=== PATIENT | female | born 1965 | race Caucasian/White ===

== ENCOUNTER 2025-03-30 20:42 | Emergency (ER) | payer MEDICAID, SELFPAY ==
[2025-03-30 20:44] VITALS: BMI 18.3
[2025-03-30 21:12] VITALS: BP 148/76; PULSE 72; RESP 22; TEMP 36.9; O2SAT 92; O2SAT 96
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
--- NOTE | 2025-03-30 21:23 | EKG_ITS ---
[facility] Test Date: 2025-03-30 Pat Name: LAQUITA LANE Department: Room: - Gender: Female Dietary Director: : 1965 Requested By: Bob Noguera Order Number: [id number] Reading MD: Bob Noguera Measurements Intervals Hilliards Rate: 63 P: 75 LA: 148 QRS: 88 QRSD: 75 T: 79 QT: 401 QTc: 413 Interpretive Statements SINUS RHYTHM ST ELEVATION, PROBABLY EARLY REPOLARIZATION [ST ELEVATION WITH NORMALLY INFLECTED T-WAVE] No previous ECG available for comparison /[id number]/S0/[id number].pdf
--- NOTE | 2025-03-30 21:23 | XR_ITS ---
Examination: AP chest single view Technique AP portable upright chest single view Date and time: March 30, 2025 2142 hours Comparison June 30, 2024 INDICATIONS: Shortness of breath weakness beginning today FINDINGS: Normal heart size The lungs are clear Prominent osteopenia Moderate hyperexpansion IMPRESSION: COPD with moderate hyperexpansion No pneumonia or pulmonary edema
--- NOTE | 2025-03-30 21:23 | XR_ITS ---
Examination: CT brain head without contrast. 2-D sagittal coronal reconstructions Date and time of exam:March 31, 2025 0012 hours INDICATIONS: Altered mental status today CTDI: vol (mGy): 43.7. DLP: (mGycm):812. Technique: Multiple CT axial sections of the brain have been obtained, 5 mm slice thickness. Contrast has not been administered. 2-D sagittal, coronal reconstructions have been obtained Low dose protocols were performed. One or more of the following dose reduction techniques were used; automated exposure control, adjustment of the mA and/or KV according to patient size, use of iterative reconstruction technique. Findings: No significant ventricular enlargement. Intra-axial or extra-axial hemorrhage density is not seen. No mass effect or midline shift Basal cisterns are not remarkable. Fourth ventricle is midline. Cranial vault intact. Impression: Negative for acute hemorrhage, mass effect or midline shift
--- NOTE | 2025-03-30 21:24 | XR_ITS ---
Examination: CT cervical spine without contrast 2-D sagittal reconstructions 2-D coronal reconstructions 3-D reconstructions. Exam date and time:March 31, 2025, 0012 hours INDICATIONS: Altered mental status neck pain today CTDI:vol (mGy) 11 DLP: (mGycm) 174 Technique: Multiple 2 mm axial sections of the cervical spine have been obtained. The coronal and sagittal reconstructions have been obtained. 3-D reconstructions have been obtained. Low dose protocols were performed. One or more of the following dose reduction techniques were used; automated exposure control, adjustment of the mA and/or KV according to patient size, use of iterative reconstruction technique. Findings: Axial sections demonstrate intact base of the skull. C1 exhibit satisfactory relationship to the odontoid. No acute cervical vertebral body fracture seen. Alignment posterior spinous processes satisfactory. Slight erosive right facet arthropathy C4-C5 seen not uncommonly Grade 1 anterolisthesis C5 on C6 which may relate to the degenerative changes C6-C7 Impression: No acute cervical fracture.
--- NOTE | 2025-03-30 21:24 | XR_ITS ---
Examination: CTA chest with intravenous contrast 2-D reconstructions 3-D reconstructions, vascular Date and time of exam: March 31, 2025, 0015 hours INDICATIONS: Shortness of breath chest pain CTDI: vol (mGy) 5.41 DLP: (mGycm) 195 Technique: Multiple axial sections of the thorax have been obtained. 3 mm slice thickness, from below the hemidiaphragms to above the apices of the lungs. Mediastinal and lung density settings have been obtained. 2-D sagittal and coronal reconstructions. 3-D angiographic renderings, 3-D volume renderings, 3D post processing, vascular maximum intensity projections obtained. Contrast administered is 100 cc Isovue 370 intravenous. Low dose protocols were performed. One or more of the following dose reduction techniques were used; automated exposure control, adjustment of the mA and/or KV according to patient size, use of iterative reconstruction technique. Findings: No thoracic aortic aneurysm dilatation or dissection No pulmonary artery filling defects COPD with areas of airspace destruction Small areas of right lower lobe pneumonia No visualized reverse bony lesion Kidneys partially visualized no hydronephrosis Mild kyphosis dorsal spine. Impression : Negative for pulmonary artery emboli COPD Pneumonia right base
--- NOTE | 2025-03-30 21:24 | XR_ITS ---
Examination: CT abdomen with intravenous contrast CT pelvis with intravenous contrast 2-D coronal reconstructions 2-D sagittal reconstructions Date and time of exam:March 31, 2025, 0015 hours INDICATIONS: Altered mental status of abdominal pain today. CTDI: vol (mGy) 5.25 DLP: (mGycm) 224. Technique: Multiple axial sections of the abdomen and pelvis have been obtained. 64 slice high-resolution scanner used. 3 mm axial sections have been obtained, post intravenous injection 100 cc Isovue 370 2-D sagittal, coronal reconstructions obtained. Low dose protocols were performed. One or more of the following dose reduction techniques were used; automated exposure control, adjustment of the mA and/or KV according to patient size, use of iterative reconstruction technique. Findings: Right lobe liver cyst No biliary tract dilatation The gallbladder is contracted No extrapancreatic biliary tract dilatation No pancreatic mass No hydronephrosis No bowel obstruction. Minimal thickening of the colonic wall, colon fluid-filled Colonic diverticulosis, no diverticulitis No pericecal inflammatory change Urinary bladder intact Anteverted uterus, atrophic No pelvic mass Moderate osteopenia IMPRESSION: Limited study, patient motion, absence of retroperitoneal fat Suspicious for mild colitis pattern No obstruction
[2025-03-30] MEDS: ALBUTEROL/IPRATROPIUM (Duoneb) RT SOL 3 ML NEBU INH (21:38)
[2025-03-30 21:40] VITALS: PULSE 71; RESP 23; O2SAT 100
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
[2025-03-30 22:04] LABS: Base Excess 8 (-3-3); HCO3 34 mEq/L (20-26); Inspired Oxygen, FIO2 21 %; O2 Saturation 97 % (91-98); PCO2 55 mmHg (32.0-48.0); PO2 81 mmHg (83-108); pH, Arterial 7.40 (7.35-7.45)
[2025-03-30 22:07] LABS: Allen Test Performed/OK; Puncture Site Right Brachial
[2025-03-30 22:11] LABS: Lactate (Lactic Acid) 1.3 mMol/L (0.4-2.0)
[2025-03-30 22:21] LABS: Basophils # (Auto) 0.0 Thou/mm3 (0.0-0.2); Basophils % (Auto) 0 % (0-2.5); Eosinophils # (Auto) 0.1 Thou/mm3 (0.0-0.5); Eosinophils % (Auto) 0 % (0-10); Hematocrit 33.0 % (36.0-46.0); Hemoglobin 10.6 g/dL (12.0-16.0); Immature Granulocytes Auto 0.03 Thou/mm3 (0.00-0.00); Lymphocytes # (Auto) 1.7 Thou/mm3 (1.0-4.8); Lymphocytes % (Auto) 13 % (10-50); Mean Corpuscular HGB Conc 32.1 g/dl (31.0-37.0); Mean Corpuscular Hemoglobin 28.3 pg (25.0-35.0); Mean Corpuscular Volume 88 fL (80-100); Monocytes # (Auto) 1.1 Thou/mm3 (0.0-0.8); Monocytes % (Auto) 8 % (0-12); Neutrophils # (Auto) 10.8 Thou/mm3 (1.8-7.7); Neutrophils % (Auto) 79 % (37-80); Nucleated Red Blood Cell # 0.00 Thou/mm3 (0.00-0.00); Nucleated Red Blood Cell % 0 /100 WBC (0); Platelet Count 337 Thou/mm3 (140-440); RDW Standard Deviation 42.3 fL (36.4-46.3); Red Blood Count 3.74 Miln/mm3 (4.00-5.20); White Blood Count 13.7 Thou/mm3 (3.6-11.0)
[2025-03-30] MEDS: MethylPREDNISolone SOD SUCC 62.5 MG/ML 2ML VIAL 125 MG IVP (22:26)
[2025-03-30] MEDS: cefTRIAXone/D5w 1gm IV premix 1 GM/50 ML BAG IV (22:27)
[2025-03-30 22:29] LABS: INR 1.1 (0.9-1.3); Partial Thromboplastin Time 32.6 Seconds (22.0-36.0); Prothrombin Time 11.9 Seconds (9.0-12.2)
[2025-03-30 22:30] LABS: Sed Rate (ESR) 9 mm/hr (0-30)
[2025-03-30 22:35] LABS: Collection Type, Urine Clean Catch
[2025-03-30 22:40] LABS: Bilirubin,Urine Negative (Negative); Blood,Urine Negative (Negative); Clarity,Urine Clear (Clear/Hazy); Color,Urine Lt-Yellow (Lt Yel-Yel); Culture Indicated,Urine Not Indicated; Glucose, Urine Negative (Negative); Hyaline Casts,Urine < 1 /hpf (0-1); Ketones,Urine Negative (Negative); Leukocyte Esterase,Urine Positive (Negative); Nitrite,Urine Negative (Negative); PH,Urine 7.0 (5.0-7.0); Protein,Urine Negative (Neg - Trace); RBC,Urine 3 /hpf (0-3); Specific Gravity,Urine 1.014 (1.001-1.035); Squamous Epithelial Cell,Urine 2 /hpf (0-5); Urobilinogen,Urine 2.0 mg/dL (0.0-1.0); WBC,Urine 2 /hpf (0-5)
[2025-03-30 22:49] LABS: D-Dimer < 250 ng/mL (<600)
[2025-03-30] MEDS: AZITHROMYCIN INJ 500 MG in SODIUM CHLORIDE 0.9% 250 ML 250 ML 250 MG IV (23:05)
[2025-03-30 23:13] LABS: Amphetamine/Methamp Scrn,U Negative (Negative); Barbiturate Screen,Urine Negative (Negative); Benzodiazepines Screen,Urine Negative (Negative); Benzoylecgonine Screen, Ur Negative (Negative); Fentanyl Screen,Urine Negative (Negative); Opiate Screen,Urine Positive (Negative); THC Screen,Urine Negative (Negative)
[2025-03-30] MEDS: DIAZEPAM INJ 5 MG/ML VIAL 2 ML 2.5 MG IVP (23:23)
[2025-03-30 23:27] LABS: Alanine Aminotransferase 10 U/L (10-49); Albumin, Serum 4.0 gm/dL (3.4-4.8); Albumin/Globulin Ratio 1.8 (1.2-2.2); Alcohol, Blood Medical < 3.0 mg/dL (0-10.0); Alkaline Phosphatase 109 U/L (46-116); Anion Gap 7 (7-16); Aspartate Amino Transferase 13 U/L (0-34); BUN/Creatinine Ratio 23 Ratio (12-20); Bilirubin,Direct < 0.1 mg/dL (0.0-0.3); Bilirubin,Total 0.3 mg/dL (0.3-1.2); Blood Urea Nitrogen 9 mg/dL (9-23); Calcium 9.3 mg/dL (8.3-10.6); Calcium (Corrected) 9.3 mg/dL (8.5-10.1); Carbon Dioxide 33.0 mMol/L (20.0-31.0); Chloride 92 mMol/L (98-107); Creatinine (Component) 0.4 mg/dL (0.6-1.3); Estimated Creatinine Clearance 89.9 mL/min (>60); Free T4 (Free Thyroxine) 1.12 ng/dL (0.89-1.76); Globulin 2.2 gm/dL (2.3-3.5); Glucose 128 mg/dL (74-106); Magnesium 1.7 mg/dL (1.6-2.6); Osmolality,Calculated 265 (275-295); Potassium 3.4 mMol/L (3.4-5.1); Procalcitonin 0.06 ng/ml (0.0-0.49); Sodium 132 mMol/L (136-145); Thyroid Stimulating Hormone 0.89 uIU/mL (0.55-4.78); Total Protein 6.2 gm/dL (5.7-8.2); Troponin I < 0.020 ng/mL (0.0-0.045); eGFR > 60 See Note
[2025-03-30 23:38] LABS: B-Type Natriuretic Peptide 41 pg/mL (0-100)
[2025-03-30 23:45] LABS: C-Reactive Protein < 0.5 mg/dL (0.0-0.9)
[2025-03-31 00:57] VITALS: BP 113/75; PULSE 75; RESP 14; TEMP 37; O2SAT 99
--- NOTE | 2025-03-31 01:05 | PRELIM_ITS ---
CT scan of the head without intravenous contrast (axial sections with sagittal and coronal reformats) March 31, 2025 0012 hours Clinical history: AMS No prior study is available for comparison. Findings: There is no evidence of intracranial hemorrhage, mass effect or midline shift. There are mild periventricular and subcortical white matter hypodensities, likely representing chronic small vessel ischemia. There is mild volume loss. There is atheromatous calcification of the intracranial arteries. The calvarium is unremarkable. There is mild to moderate mucosal thickening in bilateral maxillary sinuses. The mastoid air cells and the other visualized paranasal sinuses are clear. Impression: No evidence of intracranial hemorrhage, mass effect or midline shift. Periventricular chronic small vessel ischemia and volume loss. Report Electronically Signed By: Alfonso Lopez 03/31/2025 1:04:41 AM [EST]
--- NOTE | 2025-03-31 01:36 | PRELIM_ITS ---
CT scan of the cervical spine without intravenous contrast (axial sections with sagittal and coronal reformats) March 31, 2025 0012 hours Clinical History: Trauma No prior study is available for comparison. Findings: The bones are osteopenic. There is no fracture or traumatic subluxation. There is mild anterolisthesis of C5 on C 6. Mild to moderate degenerative changes are noted in the form of multilevel marginal osteophytes, decreased disc spaces and endplate sclerosis. C3-C4 through C6-C7 disc osteophyte complexes are noted with associated uncinate hypertrophy and facet arthropathy causing mild spinal canal and bilateral neural foraminal narrowing. There is right C4-C5 erosive facet athropathy. The prevertebral soft tissues are unremarkable. There are emphysematous changes in the lungs bilaterally. Impression: No evidence of fracture or traumatic subluxation. Mild to moderate degenerative changes. Right C4-C5 erosive facet athropathy, likely degenerative or infective. Recommend clinical correlation and followup. Report Electronically Signed By: Alfonso Lopez 03/31/2025 1:35:49 AM [EST]
--- NOTE | 2025-03-31 01:42 | PRELIM_ITS ---
CT angiogram of the chest with intravenous contrast (axial sections with sagittal and coronal reformats, 3D/MIP reconstructed images) March 31, 2025 0015 hours Clinical History: SOB HYPOXIA No prior study is available for comparison. Findings: There is no filling defect within the pulmonary artery divisions to suggest pulmonary thromboembolism. The mediastinum demonstrates no evidence of mass or lymphadenopathy. The thoracic aorta is unremarkable. There is no pericardial effusion. There are a patchy opacities in the right lower lobe. No evidence of pleural effusion or pneumothorax. There is a old fracture of the left 2nd rib. There is an healing fracture of the left 3rd rib. No acute fracture is noted. Impression: No evidence of pulmonary thromboembolism. Patchy infiltrates in the right lower lobe, likely of infectious etiology. Recommend clinical correlation. Report Electronically Signed By: Alfonso Lopez 03/31/2025 1:42:00 AM [EST]
--- NOTE | 2025-03-31 01:47 | PRELIM_ITS ---
CT scan of the abdomen and pelvis with intravenous contrast (axial sections with sagittal and coronal reformats) March 31, 2025 at 0015 hours Clinical History: Abdominal pain No prior study is available for comparison. Findings: The evaluation is limited by respiratory motion and paucity of intra-abdominal fat. There is a simple cyst in the right lobe of the liver, measuring 1.3 cm. Small hypodense lesions are seen in the liver, too small to characterize. The gallbladder is contracted. Mild intra and extrahepatic biliary ductal dilatation, of unclear significance. Small hypodense lesions are seen in the right kidney, too small to characterize. The gallbladder, pancreas, spleen, left kidney and adrenals are unremarkable. No evidence of bowel obstruction. Multiple fluid filled small bowel loops and right colon with mural enhancement are noted. The appendix is not definitively visualized. The urinary bladder is incompletely distended at the time of the examination and appears mildly thick walled. There is no free fluid or free air. The aorta and its branches demonstrate atheromatous calcification without evidence of aneurysm. There is no adenopathy. Mild degenerative changes are identified in the spine. There is a old fracture in the right inferior pubic ramus. Impression: Limited evaluation as described. Multiple fluid filled small bowel loops and right colon with mural enhancement. In the appropriate clinical setting, possibility of enterocolitis cannot be excluded. Other findings as described above. Report Electronically Signed By: Alfonso Lopez 03/31/2025 1:47:21 AM [EST]
[2025-03-31 02:16] VITALS: BP 157/81; PULSE 75; RESP 14; TEMP 37; O2SAT 99
== END 2025-03-31 02:17 | disposition home or self-care (01) ==
PROVIDERS: Emergency Provider Emergency Medicine
DX: J44.1 Chronic obstructive pulmonary disease with (acute) exacerbation (principal); J44.0 Chronic obstructive pulmonary disease with (acute) lower respiratory infection; J18.9 Pneumonia, unspecified organism; F17.210 Nicotine dependence, cigarettes, uncomplicated; M54.2 Cervicalgia; R41.82 Altered mental status, unspecified; R94.31 Abnormal electrocardiogram [ECG] [EKG]; Y04.0XXA Assault by unarmed brawl or fight, initial encounter
CPT/HCPCS: 36415; 36600; 70450; 71045; 71275; 72125; 74177; 80053; 80307; 80320; 81001; 82248; 82803; 83605; 83735; 83880; 84145; 84439; 84443; 84484; 85025; 85379; 85610; 85652; 85730; 86140; 87040; 87400; 87811; 93005; 94640; 96365; 96366; 96375; 99284; A4649; A9270; J0456; J0696; J2919; J3360; J7050; Q9967; G0480